=== PATIENT | male | born 1995 | race Caucasian/White ===

== ENCOUNTER 2023-05-24 14:40 | Inpatient (IN) | payer MEDICAID, OTHER ==
[~2023-05-24] VITALS: Ht 188 cm; Wt 105.0 kg
[2023-05-24] MEDS ORDERED: SODIUM CHLORIDE 0.9% 1,000 ML IVB ONE (15:00)
[2023-05-24] MEDS ORDERED: PANTOPRAZOLE 40 MG/10 ML VIAL INJ IV ONE (15:00)
[2023-05-24] MEDS ORDERED: HYDROmorphone HCL 2 MG/ML VL/or syr IV ONE (15:00)
[2023-05-24] MEDS ORDERED: PROCHLORPERAZINE EDISYLATE 5 MG/ML 2ML VIAL IV ONE (15:00)
[2023-05-24 16:06] LABS: Basophils # (auto) 0.1 10 ^3/uL (0-0.2); Basophils % (auto) 0.8 % (0.0-2.0); Eosinophils % (auto) 0.4 % (0.0-7.0); Nucleated Red Blood Cells % 0.2 %
[2023-05-24 16:08] LABS: Eosinophils # (auto) 0 10 ^3/uL (0-0.8); Hematocrit 43.8 % (41.0-53.0); Lymphocytes # (auto) 1.8 10 ^3/uL (0.4-5.4); Lymphocytes % (auto) 15.6 % (10.0-50.0); Mean Corpuscular Hemoglobin 33.4 pg (28.0-32.0); Mean Corpuscular Volume 86.2 fL (80.0-100.0); Monocytes # (auto) 0.8 10 ^3/uL (0-1.3); Monocytes % (auto) 6.7 % (0.0-12.0); Neutrophils # (auto) 9.1 10 ^3/uL (1.6-8.6); Neutrophils % (auto) 76.5 % (37.0-80.0); Red Blood Cells 5.08 10^6/uL (4.5-5.90); White Blood Cell 11.8 10^3/uL (4.4-10.8)
[2023-05-24 16:11] LABS: Mean Corpuscular Hgb Conc. 38.8 g/dL (32.0-36.0)
[2023-05-24 16:17] LABS: Calcium 9.7 mg/dL (8.7-10.4); Chloride 95 mmol/L (98-107); Sodium 129 mmol/L (136-145)
[2023-05-24 16:47] LABS: Albumin 4.9 g/dL (3.2-4.8); Alkaline Phosphatase 82 U/L (46-116); Anion Gap 17 (5-15); BUN/Creatinine Ratio 12.4 (10.0-20.0); Bilirubin, Total 0.4 mg/dL (0.2-1.0); Blood Urea Nitrogen 13 mg/dL (9-23); Carbon Dioxide 17 mmol/L (20-30); Lipase 567 U/L (12-53); Potassium 4.4 mmol/L (3.5-5.1); Total Protein 6.5 g/dL (5.7-8.2)
[2023-05-24 17:12] LABS: Glucose 429 mg/dL (74-106)
[2023-05-24 17:52] LABS: Alanine Aminotransferase 92 U/L (7-40); Aspartate Aminotransferase 57 U/L (13-40)
[2023-05-24] MEDS ORDERED: SODIUM CHLORIDE 0.9% 2,000 ML IV ONE (18:30)
[2023-05-24] MEDS ORDERED: DEXTROSE (50%) 50ML SYRG IV PRN (18:30)
[2023-05-24] MEDS ORDERED: DOCUSATE SOD 100 MG CAP PO PRN (18:30)
[2023-05-24] MEDS: chlordiazePOXIDE HCL 25 MG CAP PO SCH (18:30)
[2023-05-24] MEDS ORDERED: hydrALAZINE HCL 20 MG/ML VL IV PRN (18:45)
[2023-05-24] MEDS ORDERED: InsuLIN REG 1unit/0.01ml Soln (100units/ml) IV ONE (18:45)
[2023-05-24 19:03] LABS: Blood Alcohol < 3.0 mg/dL (<10)
[2023-05-24 19:12] LABS: Triglycerides 1871 mg/dL (< 150)
[2023-05-24] MEDS: ACCU-CHEK COMFORT CURVE STRIP VI SCH (20:00)
[2023-05-24] MEDS: InsuLIN REG 1unit/0.01ml Soln (100units/ml) SC SCH (21:00)
[2023-05-24 21:40] VITALS: PULSE 118; RESP 18; O2SAT 99
[2023-05-25] MEDS: PIPERACILLIN-TAZOB 3.375GM 100 ML IV SCH ×5 (00:12→21:18)
[2023-05-25] MEDS: HYDROmorphone HCL 2 MG/ML VL/or syr IV PRN ×2 (00:33→20:50)
[2023-05-25] MEDS: chlordiazePOXIDE HCL 25 MG CAP PO SCH ×4 (02:30→22:51)
[2023-05-25] MEDS: ACCU-CHEK COMFORT CURVE STRIP VI SCH ×13 (04:00→22:53)
[2023-05-25] MEDS: InsuLIN REG 1unit/0.01ml Soln (100units/ml) SC SCH ×3 (04:00→08:02)
[2023-05-25] MEDS ORDERED: LACTATED RINGER'S 1,000 ML IV ONE ×2 (05:30)
[2023-05-25] MEDS: SODIUM CHLORIDE 0.9% 1,000 ML IV SCH ×7 (05:33→22:52)
[2023-05-25 06:00] VITALS: PULSE 124; RESP 20; O2SAT 94
[2023-05-25 06:49] LABS: Basophils # (auto) 0 10 ^3/uL (0-0.2); Basophils % (auto) 0.4 % (0.0-2.0); Eosinophils # (auto) 0 10 ^3/uL (0-0.8); Hematocrit 50.7 % (41.0-53.0); Hemoglobin 17.1 g/dL (13.5-17.5); Lymphocytes # (auto) 0.8 10 ^3/uL (0.4-5.4); Lymphocytes % (auto) 8.3 % (10.0-50.0); Mean Corpuscular Hemoglobin 30.3 pg (28.0-32.0); Mean Corpuscular Hgb Conc. 33.6 g/dL (32.0-36.0); Mean Corpuscular Volume 90.2 fL (80.0-100.0); Monocytes # (auto) 0.8 10 ^3/uL (0-1.3); Monocytes % (auto) 8.1 % (0.0-12.0); Neutrophils # (auto) 8.2 10 ^3/uL (1.6-8.6); Neutrophils % (auto) 83.2 % (37.0-80.0); Nucleated Red Blood Cells % 0.3 %; Red Blood Cells 5.63 10^6/uL (4.5-5.90); Red Cell Distribution Width 14.6 % (11.8-14.3); White Blood Cell 9.8 10^3/uL (4.4-10.8)
[2023-05-25 07:13] LABS: Urine Epithelial Cast None Seen /hpf (<5)
[2023-05-25 07:43] VITALS: PULSE 118; RESP 24; O2SAT 92
[2023-05-25 07:47] LABS: Urine Bacteria NONE SEEN /hpf (None Seen); Urine Blood Negative /uL (Negative); Urine Clarity Clear (Clear); Urine Color Yellow (Yellow); Urine Protein, UAD 1+ (Negative); Urine Specific Gravity 1.038 (1.001-1.035); Urine Urobilinogen Normal (Negative); Urine WBC 1 /hpf (0 - 3); Urine pH 5.5 (5.0-8.0)
[2023-05-25 08:43] LABS: Bilirubin, Total 1.3 mg/dL (0.2-1.0)
[2023-05-25] MEDS ORDERED: DEXTROSE (50%) 50ML SYRG IV PRN (08:45)
[2023-05-25] MEDS ORDERED: INSULIN LANTUS (GLARGINE) 1 /0.01ml (100units/ml) SC ONE (08:45)
[2023-05-25] MEDS ORDERED: ACCU-CHEK COMFORT CURVE STRIP VI SCH ×2 (09:00→09:30)
[2023-05-25 09:25] LABS: Base Excess -3.2 mmol/L (-2.0-2.0)
[2023-05-25 09:34] LABS: Chloride 101 mmol/L (98-107); Sodium 127 mmol/L (136-145)
[2023-05-25] MEDS: INSULIN DRIP 100 UNIT/100ML 100 ML IV SCH (09:39)
[2023-05-25] MEDS: PANTOPRAZOLE 40 MG/10 ML VIAL INJ IV SCH (10:13)
[2023-05-25 11:22] LABS: Alanine Aminotransferase 62 U/L (7-40); Alkaline Phosphatase 60 U/L (46-116); Anion Gap 11 (5-15); Aspartate Aminotransferase 55 U/L (13-40); BUN/Creatinine Ratio 9.2 (10.0-20.0); Blood Urea Nitrogen 16 mg/dL (9-23); Carbon Dioxide 15 mmol/L (20-30); Potassium 5.4 mmol/L (3.5-5.1)
[2023-05-25 11:23] LABS: Albumin 4.1 g/dL (3.2-4.8); Lipase 385 U/L (12-53); Magnesium 1.5 mg/dL (1.6-2.6)
[2023-05-25 11:24] LABS: Glucose 553 mg/dL (74-106)
[2023-05-25] MEDS ORDERED: SODIUM CHLORIDE 0.9% 1,000 ML IV SCH ×2 (12:45→14:45)
[2023-05-25] MEDS: INSULIN LANTUS (GLARGINE) 1 /0.01ml (100units/ml) SC SCH (17:37)
[2023-05-25 19:30] VITALS: PULSE 124; RESP 18; O2SAT 95
[2023-05-25] MEDS: ONDANSETRON HCL 4 MG/2 ML VIAL IV PRN (20:48)
[2023-05-25] MEDS: FAMOTIDINE (10MG/ML) 2ML VL IV SCH (20:48)
[2023-05-26] MEDS: ACCU-CHEK COMFORT CURVE STRIP VI SCH ×11 (00:12→20:09)
[2023-05-26] MEDS: PIPERACILLIN-TAZOB 3.375GM 100 ML IV SCH (05:39)
[2023-05-26] MEDS: SODIUM CHLORIDE 0.9% 1,000 ML IV SCH ×7 (05:48→19:40)
[2023-05-26] MEDS: ONDANSETRON HCL 4 MG/2 ML VIAL IV PRN ×2 (06:01→18:12)
[2023-05-26] MEDS: HYDROmorphone HCL 2 MG/ML VL/or syr IV PRN ×2 (06:02→18:13)
[2023-05-26 06:44] LABS: Basophils # (auto) 0 10 ^3/uL (0-0.2); Basophils % (auto) 0.4 % (0.0-2.0); Eosinophils # (auto) 0 10 ^3/uL (0-0.8); Hematocrit 42.1 % (41.0-53.0); Hemoglobin 14.1 g/dL (13.5-17.5); Lymphocytes # (auto) 0.9 10 ^3/uL (0.4-5.4); Lymphocytes % (auto) 9.1 % (10.0-50.0); Mean Corpuscular Hemoglobin 29.6 pg (28.0-32.0); Mean Corpuscular Hgb Conc. 33.6 g/dL (32.0-36.0); Monocytes # (auto) 0.7 10 ^3/uL (0-1.3); Monocytes % (auto) 7.7 % (0.0-12.0); Neutrophils # (auto) 7.9 10 ^3/uL (1.6-8.6); Neutrophils % (auto) 82.8 % (37.0-80.0); Nucleated Red Blood Cells % 0.2 %; Red Blood Cells 4.78 10^6/uL (4.5-5.90); Red Cell Distribution Width 14.6 % (11.8-14.3); White Blood Cell 9.5 10^3/uL (4.4-10.8)
[2023-05-26 07:54] VITALS: PULSE 105; RESP 23; O2SAT 95
[2023-05-26 08:08] LABS: Alanine Aminotransferase 44 U/L (7-40); Alkaline Phosphatase 47 U/L (46-116); Amylase < 20 U/L (30-118); Anion Gap 8 (5-15); BUN/Creatinine Ratio 18.3 (10.0-20.0); Blood Urea Nitrogen 17 mg/dL (9-23); Calcium 7.7 mg/dL (8.5-10.1); Carbon Dioxide 23 mmol/L (20-30); Chloride 105 mmol/L (98-107); Potassium 3.7 mmol/L (3.5-5.1)
[2023-05-26 08:09] LABS: Albumin 3.7 g/dL (3.2-4.8); Aspartate Aminotransferase 29 U/L (13-40); Bilirubin, Total 1.3 mg/dL (0.2-1.0); Total Protein 6.1 g/dL (5.7-8.2)
[2023-05-26] MEDS: INSULIN DRIP 100 UNIT/100ML 100 ML IV SCH (08:49)
[2023-05-26 08:57] LABS: Glucose 229 mg/dL (74-106); Sodium 136 mmol/L (136-145)
[2023-05-26 08:58] LABS: Lipase 106 U/L (12-53)
[2023-05-26] MEDS ORDERED: INSULIN LANTUS (GLARGINE) 1 /0.01ml (100units/ml) SC SCH (10:00)
[2023-05-26] MEDS: chlordiazePOXIDE HCL 25 MG CAP PO SCH ×2 (10:11→22:00)
[2023-05-26] MEDS: PANTOPRAZOLE 40 MG/10 ML VIAL INJ IV SCH (10:12)
[2023-05-26] MEDS: INSULIN LANTUS (GLARGINE) 1 /0.01ml (100units/ml) SC SCH (10:15)
[2023-05-26] MEDS: FAMOTIDINE (10MG/ML) 2ML VL IV SCH ×2 (10:16→22:55)
[2023-05-26 11:12] LABS: Triglycerides 351 mg/dL (< 150)
[2023-05-26 11:13] LABS: LDL Cholesterol 26 mg/dL (< 100)
[2023-05-26 11:14] LABS: Cholesterol 119 mg/dL (< 200); HDL Cholesterol 10 mg/dL (40-59)
[2023-05-26] MEDS ORDERED: INSULIN LANTUS (GLARGINE) 1 /0.01ml (100units/ml) SC ONE (11:45)
[2023-05-26] MEDS ORDERED: chlordiazePOXIDE HCL 25 MG CAP PO SCH ×2 (11:45)
[2023-05-26] MEDS ORDERED: DEXTROSE (50%) 50ML SYRG IV PRN ×2 (11:45)
[2023-05-26] MEDS ORDERED: SODIUM CHLORIDE 0.9% 1,000 ML IV SCH (11:45)
[2023-05-26] MEDS ORDERED: ACCU-CHEK COMFORT CURVE STRIP VI SCH (11:45)
[2023-05-26] MEDS ORDERED: chlordiazePOXIDE HCL 25 MG CAP PO ONE (12:00)
[2023-05-26] MEDS: InsuLIN REG 1unit/0.01ml Soln (100units/ml) SC SCH ×3 (12:01→20:13)
[2023-05-27] VITALS (8 sets, daily range): BP systolic 105–126; BP diastolic 68–80; PULSE 92–109; RESP 16–18; TEMP 97.8–100.3; O2SAT 93–99
[2023-05-27] MEDS ORDERED: ESOM20CA PO (00:11)
[2023-05-27] MEDS: HYDROmorphone HCL 2 MG/ML VL/or syr IV PRN ×5 (00:13→21:03)
[2023-05-27] MEDS: InsuLIN REG 1unit/0.01ml Soln (100units/ml) SC SCH ×6 (00:14→20:56)
[2023-05-27] MEDS: ACCU-CHEK COMFORT CURVE STRIP VI SCH ×6 (00:15→20:21)
[2023-05-27] MEDS: SODIUM CHLORIDE 0.9% 1,000 ML IV SCH ×7 (00:17→18:14)
[2023-05-27 06:11] LABS: Alanine Aminotransferase 32 U/L (7-40); Albumin 3.7 g/dL (3.2-4.8); Alkaline Phosphatase 46 U/L (46-116); Anion Gap 6 (5-15); Aspartate Aminotransferase 17 U/L (13-40); Blood Urea Nitrogen 13 mg/dL (9-23); Calcium 8.1 mg/dL (8.7-10.4); Carbon Dioxide 27 mmol/L (20-30); Chloride 102 mmol/L (98-107); Glucose 151 mg/dL (74-106); Lipase 83 U/L (12-53); Potassium 3.6 mmol/L (3.5-5.1); Sodium 135 mmol/L (136-145)
[2023-05-27 06:12] LABS: Bilirubin, Total 0.6 mg/dL (0.2-1.0); Total Protein 6.1 g/dL (5.7-8.2)
[2023-05-27 06:30] LABS: BUN/Creatinine Ratio 17.3 (10.0-20.0)
[2023-05-27] MEDS ORDERED: chlordiazePOXIDE HCL 25 MG CAP PO SCH (07:00)
[2023-05-27] MEDS: FAMOTIDINE (10MG/ML) 2ML VL IV SCH ×2 (09:20→21:48)
[2023-05-27] MEDS: PANTOPRAZOLE 40 MG/10 ML VIAL INJ IV SCH (09:21)
[2023-05-27] MEDS: INSULIN LANTUS (GLARGINE) 1 /0.01ml (100units/ml) SC SCH (10:32)
[2023-05-28] VITALS (9 sets, daily range): BP systolic 114–150; BP diastolic 74–88; PULSE 61–112; RESP 17–21; TEMP 97.7–98.8; O2SAT 90–100
[2023-05-28] MEDS: ACCU-CHEK COMFORT CURVE STRIP VI SCH ×6 (00:04→20:25)
[2023-05-28] MEDS: InsuLIN REG 1unit/0.01ml Soln (100units/ml) SC SCH ×6 (00:06→20:28)
[2023-05-28] MEDS: HYDROmorphone HCL 2 MG/ML VL/or syr IV PRN ×7 (00:15→23:20)
[2023-05-28] MEDS: SODIUM CHLORIDE 0.9% 1,000 ML IV SCH ×2 (04:58→12:14)
[2023-05-28] MEDS ORDERED: chlordiazePOXIDE HCL 25 MG CAP PO SCH (07:00)
[2023-05-28] MEDS: PANTOPRAZOLE 40 MG/10 ML VIAL INJ IV SCH (09:49)
[2023-05-28] MEDS: FAMOTIDINE (10MG/ML) 2ML VL IV SCH ×2 (09:49→22:33)
[2023-05-28] MEDS: INSULIN LANTUS (GLARGINE) 1 /0.01ml (100units/ml) SC SCH (10:43)
[2023-05-28] MEDS ORDERED: GADOTERATE MEG 10 MMOL/20ml INJ (0.5MMOL/ml) IV ONE (13:16)
[2023-05-28] MEDS: LACTATED RINGER'S 1,000 ML IV SCH ×2 (13:20→23:27)
[2023-05-29] MEDS: ACCU-CHEK COMFORT CURVE STRIP VI SCH ×6 (00:25→20:18)
[2023-05-29] MEDS: InsuLIN REG 1unit/0.01ml Soln (100units/ml) SC SCH ×6 (00:28→20:18)
[2023-05-29] MEDS: HYDROmorphone HCL 2 MG/ML VL/or syr IV PRN ×6 (03:16→20:58)
[2023-05-29 05:00] VITALS: BP 164/88; PULSE 99; RESP 20; TEMP 98.4; O2SAT 96
[2023-05-29 06:41] LABS: Basophils # (auto) 0 10 ^3/uL (0-0.2); Basophils % (auto) 0.2 % (0.0-2.0); Eosinophils # (auto) 0 10 ^3/uL (0-0.8); Eosinophils % (auto) 0.4 % (0.0-7.0); Hematocrit 38.1 % (41.0-53.0); Hemoglobin 12.6 g/dL (13.5-17.5); Lymphocytes # (auto) 1.2 10 ^3/uL (0.4-5.4); Lymphocytes % (auto) 12.5 % (10.0-50.0); Mean Corpuscular Hemoglobin 29.9 pg (28.0-32.0); Mean Corpuscular Hgb Conc. 33.2 g/dL (32.0-36.0); Mean Corpuscular Volume 90.1 fL (80.0-100.0); Monocytes # (auto) 1.2 10 ^3/uL (0-1.3); Monocytes % (auto) 12.5 % (0.0-12.0); Neutrophils % (auto) 74.4 % (37.0-80.0); Nucleated Red Blood Cells % 0.1 %; Red Blood Cells 4.22 10^6/uL (4.5-5.90); Red Cell Distribution Width 14.1 % (11.8-14.3); White Blood Cell 9.4 10^3/uL (4.4-10.8)
[2023-05-29 06:42] LABS: Chloride 103 mmol/L (98-107); Potassium 3.3 mmol/L (3.5-5.1); Sodium 138 mmol/L (136-145)
[2023-05-29 06:43] LABS: Anion Gap 7 (5-15); Carbon Dioxide 28 mmol/L (20-30)
[2023-05-29 06:44] LABS: Calcium 8.9 mg/dL (8.7-10.4)
[2023-05-29 06:48] LABS: Glucose 149 mg/dL (74-106)
[2023-05-29 06:49] LABS: BUN/Creatinine Ratio 6.3 (10.0-20.0); Blood Urea Nitrogen < 5 mg/dL (9-23)
[2023-05-29 08:00] VITALS: PULSE 94
[2023-05-29 08:05] VITALS: BP 136/81; PULSE 105; RESP 18; TEMP 97.8; O2SAT 95
[2023-05-29] MEDS ORDERED: POTASSIUM CHLORIDE 40 MEQ, LIDOCAINE 1% (LOCAL ANESTH.) 4 ML in SODIUM CHL 0.9% 250 ML IV ONE (08:30)
[2023-05-29] MEDS: MAGNESIUM SULFATE 1GM/100ML 100 ML IV SCH ×3 (08:31→11:08)
[2023-05-29] MEDS ORDERED: SODIUM CHLORIDE LOCK 0 ML ONE (08:48)
[2023-05-29] MEDS ORDERED: MIDAZOLAM HCL 5 MG/ML-1ML VIAL ONE (08:48)
[2023-05-29] MEDS ORDERED: fentaNYL CITRATE 100 MCG/2 ML VL ONE (08:48)
[2023-05-29] MEDS ORDERED: diphenhdrAMINE HCL 50 MG/1 ML VL ONE (08:48)
[2023-05-29] MEDS ORDERED: LIDOCAINE VISCOUS 2% 15ML UD ONE (08:48)
[2023-05-29] MEDS: LACTATED RINGER'S 1,000 ML IV SCH ×2 (09:00→18:40)
[2023-05-29] MEDS: PANTOPRAZOLE 40 MG/10 ML VIAL INJ IV SCH (09:29)
[2023-05-29] MEDS: FAMOTIDINE (10MG/ML) 2ML VL IV SCH ×2 (09:29→21:04)
[2023-05-29] MEDS: INSULIN LANTUS (GLARGINE) 1 /0.01ml (100units/ml) SC SCH (09:32)
[2023-05-29 09:53] LABS: INR 1.14 (0.9-1.15); Partial Thromboplastin Time 29.1 SEC (24.5-34.5); Prothrombin Time 11.9 sec (9.3-11.8)
[2023-05-29 10:41] VITALS: BP 136/81; PULSE 101; RESP 18; TEMP 97.8; O2SAT 95
[2023-05-29] MEDS ORDERED: traMADol HCL 50 MG TAB PO PRN (16:00)
[2023-05-29 17:25] VITALS: BP 153/87; PULSE 98; RESP 19; TEMP 98; O2SAT 94
[2023-05-29 20:00] VITALS: BP 123/85; PULSE 101; PULSE 114; RESP 20; TEMP 99.1; O2SAT 96; O2SAT 99
[2023-05-30] MEDS: HYDROmorphone HCL 2 MG/ML VL/or syr IV PRN ×8 (00:05→22:46)
[2023-05-30] MEDS: ACCU-CHEK COMFORT CURVE STRIP VI SCH ×7 (00:06→23:45)
[2023-05-30] MEDS: InsuLIN REG 1unit/0.01ml Soln (100units/ml) SC SCH ×7 (00:06→23:56)
[2023-05-30] MEDS: traMADol HCL 50 MG TAB PO PRN (01:10)
[2023-05-30] MEDS: LACTATED RINGER'S 1,000 ML IV SCH ×3 (05:00→23:45)
[2023-05-30 06:03] LABS: Basophils # (auto) 0 10 ^3/uL (0-0.2); Basophils % (auto) 0.6 % (0.0-2.0); Eosinophils # (auto) 0.1 10 ^3/uL (0-0.8); Eosinophils % (auto) 0.7 % (0.0-7.0); Hematocrit 37.7 % (41.0-53.0); Hemoglobin 12.6 g/dL (13.5-17.5); Lymphocytes # (auto) 1.2 10 ^3/uL (0.4-5.4); Lymphocytes % (auto) 15.2 % (10.0-50.0); Mean Corpuscular Hemoglobin 29.7 pg (28.0-32.0); Mean Corpuscular Hgb Conc. 33.3 g/dL (32.0-36.0); Mean Corpuscular Volume 88.9 fL (80.0-100.0); Monocytes % (auto) 13.1 % (0.0-12.0); Neutrophils # (auto) 5.4 10 ^3/uL (1.6-8.6); Neutrophils % (auto) 70.4 % (37.0-80.0); Red Blood Cells 4.24 10^6/uL (4.5-5.90); White Blood Cell 7.7 10^3/uL (4.4-10.8)
[2023-05-30 06:46] LABS: Alanine Aminotransferase 21 U/L (7-40); Alkaline Phosphatase 68 U/L (46-116); Anion Gap 8 (5-15); Aspartate Aminotransferase 11 U/L (13-40); BUN/Creatinine Ratio 6.8 (10.0-20.0); Bilirubin, Total 0.6 mg/dL (0.2-1.0); Blood Urea Nitrogen < 5 mg/dL (9-23); Calcium 9.2 mg/dL (8.7-10.4); Carbon Dioxide 28 mmol/L (20-30); Chloride 102 mmol/L (98-107); Glucose 147 mg/dL (74-106); Magnesium 1.8 mg/dL (1.6-2.6); Potassium 3.2 mmol/L (3.5-5.1); Sodium 138 mmol/L (136-145); Total Protein 6.6 g/dL (5.7-8.2)
[2023-05-30 07:51] VITALS: BP 144/80; PULSE 86; RESP 18; TEMP 98.1; O2SAT 96
[2023-05-30 08:00] VITALS: BP 144/80; PULSE 83; PULSE 86; RESP 18; TEMP 98.1; O2SAT 96
[2023-05-30] MEDS: PANTOPRAZOLE 40 MG/10 ML VIAL INJ IV SCH (09:35)
[2023-05-30] MEDS: FAMOTIDINE (10MG/ML) 2ML VL IV SCH ×2 (09:35→21:52)
[2023-05-30] MEDS: INSULIN LANTUS (GLARGINE) 1 /0.01ml (100units/ml) SC SCH (09:38)
[2023-05-30] MEDS ORDERED: POTASSIUM CHLORIDE 40 MEQ, LIDOCAINE 1% (LOCAL ANESTH.) 4 ML in SODIUM CHL 0.9% 250 ML IV ONE (11:00)
[2023-05-30 11:58] VITALS: BP 119/86; PULSE 96; RESP 17; TEMP 98.7; O2SAT 92
[2023-05-30 16:43] VITALS: BP 142/80; PULSE 92; RESP 17; TEMP 98.7; O2SAT 95
[2023-05-30 20:00] VITALS: PULSE 105
[2023-05-30 22:00] VITALS: BP 155/95; PULSE 100; RESP 18; O2SAT 95
[2023-05-30] MEDS: LORazepam 2MG/ML-1ML VIAL IV PRN (23:45)
[2023-05-31] VITALS (7 sets, daily range): BP systolic 129–149; BP diastolic 82–95; PULSE 89–103; RESP 15–20; TEMP 98.4–100; O2SAT 95–97
[2023-05-31] MEDS: HYDROmorphone HCL 2 MG/ML VL/or syr IV PRN ×7 (01:47→22:19)
[2023-05-31] MEDS: InsuLIN REG 1unit/0.01ml Soln (100units/ml) SC SCH ×5 (03:56→20:00)
[2023-05-31] MEDS: ACCU-CHEK COMFORT CURVE STRIP VI SCH ×5 (04:06→20:00)
[2023-05-31 07:08] LABS: Chloride 102 mmol/L (98-107); Potassium 3.3 mmol/L (3.5-5.1); Sodium 138 mmol/L (136-145)
[2023-05-31 07:09] LABS: Anion Gap 8 (5-15); Calcium 9.5 mg/dL (8.7-10.4); Carbon Dioxide 28 mmol/L (20-30)
[2023-05-31 07:14] LABS: Glucose 126 mg/dL (74-106)
[2023-05-31 07:15] LABS: Magnesium 1.8 mg/dL (1.6-2.6)
[2023-05-31 07:25] LABS: BUN/Creatinine Ratio 6.8 (10.0-20.0); Blood Urea Nitrogen < 5 mg/dL (9-23)
[2023-05-31] MEDS: FAMOTIDINE (10MG/ML) 2ML VL IV SCH ×2 (09:32→22:17)
[2023-05-31] MEDS: PANTOPRAZOLE 40 MG/10 ML VIAL INJ IV SCH (09:32)
[2023-05-31] MEDS: INSULIN LANTUS (GLARGINE) 1 /0.01ml (100units/ml) SC SCH (09:37)
[2023-05-31] MEDS ORDERED: POTASSIUM CHL 20 Meq TABLET PO ONE (10:45)
[2023-05-31] MEDS: LACTATED RINGER'S 1,000 ML IV SCH ×2 (12:00→22:18)
[2023-05-31] MEDS ORDERED: ENOXAPARIN SOD 40 MG/0.4 ML SYRINGE SC ONE (13:00)
[2023-06-01] VITALS (8 sets, daily range): BP systolic 119–138; BP diastolic 67–84; PULSE 78–96; RESP 17–18; TEMP 97.5–98.8; O2SAT 94–100
[2023-06-01] MEDS: ACCU-CHEK COMFORT CURVE STRIP VI SCH ×6 (00:20→23:03)
[2023-06-01] MEDS: HYDROmorphone HCL 2 MG/ML VL/or syr IV PRN ×6 (01:55→19:37)
[2023-06-01] MEDS: InsuLIN REG 1unit/0.01ml Soln (100units/ml) SC SCH ×6 (04:00→23:03)
[2023-06-01 06:37] LABS: Anion Gap 7 (5-15); Carbon Dioxide 27 mmol/L (20-30); Chloride 103 mmol/L (98-107); Potassium 3.5 mmol/L (3.5-5.1); Sodium 137 mmol/L (136-145)
[2023-06-01 06:38] LABS: Calcium 9.4 mg/dL (8.7-10.4)
[2023-06-01 06:43] LABS: Glucose 128 mg/dL (74-106)
[2023-06-01 06:46] LABS: BUN/Creatinine Ratio 6.2 (10.0-20.0); Blood Urea Nitrogen < 5 mg/dL (9-23)
[2023-06-01 06:49] LABS: Magnesium 1.8 mg/dL (1.6-2.6)
[2023-06-01] MEDS: FAMOTIDINE (10MG/ML) 2ML VL IV SCH ×2 (08:07→22:36)
[2023-06-01] MEDS: PANTOPRAZOLE 40 MG/10 ML VIAL INJ IV SCH (08:09)
[2023-06-01] MEDS: ENOXAPARIN SOD 40 MG/0.4 ML SYRINGE SC SCH (09:42)
[2023-06-01] MEDS: LACTATED RINGER'S 1,000 ML IV SCH ×2 (11:27→17:00)
[2023-06-01] MEDS: INSULIN LANTUS (GLARGINE) 1 /0.01ml (100units/ml) SC SCH (11:51)
[2023-06-01] MEDS: ZOLPIDEM TARTRATE 5 MG TAB PO PRN (22:42)
[2023-06-02] VITALS (7 sets, daily range): BP systolic 98–122; BP diastolic 58–76; PULSE 74–96; RESP 18–20; TEMP 97.4–98.6; O2SAT 96–99
[2023-06-02] MEDS: HYDROmorphone HCL 2 MG/ML VL/or syr IV PRN ×6 (01:28→23:19)
[2023-06-02] MEDS: LACTATED RINGER'S 1,000 ML IV SCH ×3 (02:29→23:28)
[2023-06-02] MEDS: ACCU-CHEK COMFORT CURVE STRIP VI SCH ×4 (06:32→23:27)
[2023-06-02] MEDS: InsuLIN REG 1unit/0.01ml Soln (100units/ml) SC SCH ×4 (06:40→23:27)
[2023-06-02] MEDS: PANTOPRAZOLE 40 MG/10 ML VIAL INJ IV SCH (10:15)
[2023-06-02] MEDS: FAMOTIDINE (10MG/ML) 2ML VL IV SCH ×2 (10:15→21:41)
[2023-06-02] MEDS: ENOXAPARIN SOD 40 MG/0.4 ML SYRINGE SC SCH (10:29)
[2023-06-02] MEDS: INSULIN LANTUS (GLARGINE) 1 /0.01ml (100units/ml) SC SCH (10:47)
[2023-06-02] MEDS: ZOLPIDEM TARTRATE 5 MG TAB PO PRN (21:42)
[2023-06-03] VITALS (8 sets, daily range): BP systolic 115–133; BP diastolic 67–77; PULSE 71–79; RESP 17–20; TEMP 97.4–98.5; O2SAT 95–100
[2023-06-03] MEDS: HYDROmorphone HCL 2 MG/ML VL/or syr IV PRN ×5 (03:58→22:17)
[2023-06-03] MEDS: ACCU-CHEK COMFORT CURVE STRIP VI SCH ×3 (05:26→17:36)
[2023-06-03] MEDS: InsuLIN REG 1unit/0.01ml Soln (100units/ml) SC SCH ×3 (05:26→17:36)
[2023-06-03 06:58] LABS: Alanine Aminotransferase 28 U/L (7-40); Albumin 4.2 g/dL (3.2-4.8); Alkaline Phosphatase 67 U/L (46-116); Anion Gap 4 (5-15); Aspartate Aminotransferase 35 U/L (13-40); Bilirubin, Total 0.4 mg/dL (0.2-1.0); Calcium 9.8 mg/dL (8.5-10.1); Carbon Dioxide 31 mmol/L (20-30); Chloride 105 mmol/L (98-107); Glucose 116 mg/dL (74-106); Potassium 3.8 mmol/L (3.5-5.1); Sodium 140 mmol/L (136-145); Total Protein 6.9 g/dL (5.7-8.2)
[2023-06-03 07:03] LABS: BUN/Creatinine Ratio 5.7 (10.0-20.0); Blood Urea Nitrogen < 5 mg/dL (9-23)
[2023-06-03] MEDS: PANTOPRAZOLE 40 MG/10 ML VIAL INJ IV SCH (08:43)
[2023-06-03] MEDS: FAMOTIDINE (10MG/ML) 2ML VL IV SCH ×2 (08:43→22:17)
[2023-06-03] MEDS: LACTATED RINGER'S 1,000 ML IV SCH ×2 (08:58→19:00)
[2023-06-03] MEDS: ENOXAPARIN SOD 40 MG/0.4 ML SYRINGE SC SCH (11:03)
[2023-06-03] MEDS: INSULIN LANTUS (GLARGINE) 1 /0.01ml (100units/ml) SC SCH (11:12)
[2023-06-03] MEDS ORDERED: GADOTERATE MEG 10 MMOL/20ml INJ (0.5MMOL/ml) IV ONE (12:07)
[2023-06-03] MEDS ORDERED: DEXTROSE 10% 1,000 ML IV ONE (16:15)
[2023-06-03 17:02] LABS: Chloride 102 mmol/L (98-107); Potassium 3.8 mmol/L (3.5-5.1); Sodium 137 mmol/L (136-145)
[2023-06-03 17:03] LABS: Anion Gap 4 (5-15); Carbon Dioxide 31 mmol/L (20-30)
[2023-06-03 17:04] LABS: Calcium 9.8 mg/dL (8.5-10.1)
[2023-06-03 17:08] LABS: Glucose 99 mg/dL (74-106)
[2023-06-03 17:11] LABS: Blood Urea Nitrogen < 5 mg/dL (9-23)
[2023-06-04] VITALS (7 sets, daily range): BP systolic 110–146; BP diastolic 63–87; PULSE 65–94; RESP 16–20; TEMP 97.5–98.9; O2SAT 94–98
[2023-06-04] MEDS: ACCU-CHEK COMFORT CURVE STRIP VI SCH ×4 (00:26→21:15)
[2023-06-04] MEDS: ZOLPIDEM TARTRATE 5 MG TAB PO PRN (00:32)
[2023-06-04] MEDS: HYDROmorphone HCL 2 MG/ML VL/or syr IV PRN ×4 (03:57→23:28)
[2023-06-04] MEDS: InsuLIN REG 1unit/0.01ml Soln (100units/ml) SC SCH ×4 (06:41→21:18)
[2023-06-04] MEDS: FAMOTIDINE (10MG/ML) 2ML VL IV SCH ×2 (10:35→21:14)
[2023-06-04] MEDS: ENOXAPARIN SOD 40 MG/0.4 ML SYRINGE SC SCH (10:35)
[2023-06-04] MEDS: PANTOPRAZOLE 40 MG/10 ML VIAL INJ IV SCH (10:35)
[2023-06-04] MEDS: LACTATED RINGER'S 1,000 ML IV SCH (10:36)
[2023-06-04] MEDS: INSULIN LANTUS (GLARGINE) 1 /0.01ml (100units/ml) SC SCH (10:38)
[2023-06-04] MEDS: LORazepam 2MG/ML-1ML VIAL IV PRN ×2 (12:39→21:14)
[2023-06-04] MEDS: traMADol HCL 50 MG TAB PO PRN (16:30)
[2023-06-05] VITALS (7 sets, daily range): BP systolic 103–132; BP diastolic 61–84; PULSE 62–88; RESP 17–20; TEMP 97.3–98.7; O2SAT 18–96
[2023-06-05] MEDS: HYDROmorphone HCL 2 MG/ML VL/or syr IV PRN ×4 (05:36→21:24)
[2023-06-05 05:42] LABS: Albumin 4.2 g/dL (3.2-4.8); Alkaline Phosphatase 66 U/L (46-116); Anion Gap 6 (5-15); Aspartate Aminotransferase 56 U/L (13-40); BUN/Creatinine Ratio 8.9 (10.0-20.0); Bilirubin, Total 0.4 mg/dL (0.2-1.0); Blood Urea Nitrogen 8 mg/dL (9-23); Calcium 9.5 mg/dL (8.7-10.4); Carbon Dioxide 30 mmol/L (20-30); Chloride 103 mmol/L (98-107); Glucose 109 mg/dL (74-106); Lipase 131 U/L (12-53); Potassium 3.8 mmol/L (3.5-5.1); Sodium 139 mmol/L (136-145); Total Protein 6.9 g/dL (5.7-8.2)
[2023-06-05] MEDS: ACCU-CHEK COMFORT CURVE STRIP VI SCH ×4 (06:00→21:24)
[2023-06-05] MEDS: InsuLIN REG 1unit/0.01ml Soln (100units/ml) SC SCH ×4 (06:00→21:57)
[2023-06-05 06:39] LABS: Alanine Aminotransferase 47 U/L (7-40)
[2023-06-05] MEDS: ENOXAPARIN SOD 40 MG/0.4 ML SYRINGE SC SCH (08:47)
[2023-06-05] MEDS: FAMOTIDINE (10MG/ML) 2ML VL IV SCH ×2 (08:47→21:24)
[2023-06-05] MEDS: PANTOPRAZOLE 40 MG/10 ML VIAL INJ IV SCH (08:47)
[2023-06-05] MEDS: INSULIN LANTUS (GLARGINE) 1 /0.01ml (100units/ml) SC SCH (10:17)
[2023-06-05] MEDS: LORazepam 2MG/ML-1ML VIAL IV PRN ×2 (14:14→23:31)
[2023-06-06] VITALS (7 sets, daily range): BP systolic 104–129; BP diastolic 56–75; PULSE 67–94; RESP 16–20; TEMP 97.7–98.6; O2SAT 90–100
[2023-06-06] MEDS: HYDROmorphone HCL 2 MG/ML VL/or syr IV PRN ×5 (02:37→20:55)
[2023-06-06 06:18] LABS: Basophils # (auto) 0 10 ^3/uL (0-0.2); Basophils % (auto) 0.6 % (0.0-2.0); Eosinophils # (auto) 0.1 10 ^3/uL (0-0.8); Eosinophils % (auto) 1.7 % (0.0-7.0); Lymphocytes # (auto) 1.5 10 ^3/uL (0.4-5.4); Lymphocytes % (auto) 33.2 % (10.0-50.0); Mean Corpuscular Hemoglobin 29.2 pg (28.0-32.0); Mean Corpuscular Hgb Conc. 33.2 g/dL (32.0-36.0); Mean Corpuscular Volume 87.8 fL (80.0-100.0); Monocytes # (auto) 0.4 10 ^3/uL (0-1.3); Monocytes % (auto) 8.9 % (0.0-12.0); Neutrophils # (auto) 2.5 10 ^3/uL (1.6-8.6); Neutrophils % (auto) 55.6 % (37.0-80.0); Nucleated Red Blood Cells % 0.1 %; Red Blood Cells 4.44 10^6/uL (4.5-5.90); Red Cell Distribution Width 13.3 % (11.8-14.3); White Blood Cell 4.5 10^3/uL (4.4-10.8)
[2023-06-06 06:34] LABS: Anion Gap 6 (5-15); Carbon Dioxide 30 mmol/L (20-30); Chloride 103 mmol/L (98-107); Sodium 139 mmol/L (136-145)
[2023-06-06 06:36] LABS: Calcium 9.7 mg/dL (8.7-10.4)
[2023-06-06] MEDS: ACCU-CHEK COMFORT CURVE STRIP VI SCH ×4 (06:39→22:20)
[2023-06-06] MEDS: InsuLIN REG 1unit/0.01ml Soln (100units/ml) SC SCH ×4 (06:39→22:00)
[2023-06-06 06:40] LABS: BUN/Creatinine Ratio 10.3 (10.0-20.0); Blood Urea Nitrogen 10 mg/dL (9-23); Glucose 103 mg/dL (74-106)
[2023-06-06] MEDS: INSULIN LANTUS (GLARGINE) 1 /0.01ml (100units/ml) SC SCH (10:00)
[2023-06-06] MEDS: FAMOTIDINE (10MG/ML) 2ML VL IV SCH ×2 (10:03→22:05)
[2023-06-06] MEDS: LORazepam 2MG/ML-1ML VIAL IV PRN ×2 (10:03→20:52)
[2023-06-06] MEDS: PANTOPRAZOLE 40 MG/10 ML VIAL INJ IV SCH (10:03)
[2023-06-06] MEDS: ENOXAPARIN SOD 40 MG/0.4 ML SYRINGE SC SCH (10:13)
[2023-06-06] MEDS: traMADol HCL 50 MG TAB PO PRN (14:30)
[2023-06-06] MEDS ORDERED: PANT40TA2 PO (16:54)
[2023-06-06] MEDS ORDERED: LANC-347 XX (16:54)
[2023-06-06] MEDS ORDERED: BLOO1KIT60 XX (16:54)
[2023-06-06] MEDS ORDERED: INSU1INJ27 SC (16:54)
[2023-06-06] MEDS ORDERED: TRAM50TA2 PO (17:33)
[2023-06-07] MEDS: HYDROmorphone HCL 2 MG/ML VL/or syr IV PRN ×3 (01:40→11:10)
[2023-06-07 05:00] VITALS: BP 108/71; PULSE 80; RESP 18; TEMP 97.8; O2SAT 96
[2023-06-07] MEDS: LORazepam 2MG/ML-1ML VIAL IV PRN ×2 (06:50→12:55)
[2023-06-07] MEDS: ACCU-CHEK COMFORT CURVE STRIP VI SCH ×2 (06:53→11:30)
[2023-06-07] MEDS: InsuLIN REG 1unit/0.01ml Soln (100units/ml) SC SCH ×2 (06:53→11:30)
[2023-06-07 09:00] VITALS: BP 111/55; PULSE 72; RESP 16; TEMP 98; O2SAT 95
[2023-06-07] MEDS: ENOXAPARIN SOD 40 MG/0.4 ML SYRINGE SC SCH (10:00)
[2023-06-07] MEDS: INSULIN LANTUS (GLARGINE) 1 /0.01ml (100units/ml) SC SCH (10:00)
[2023-06-07] MEDS: FAMOTIDINE (10MG/ML) 2ML VL IV SCH (10:51)
[2023-06-07] MEDS: PANTOPRAZOLE 40 MG/10 ML VIAL INJ IV SCH (10:51)
[2023-06-07 13:00] VITALS: BP 111/65; PULSE 72; RESP 16; TEMP 98; O2SAT 95
== END 2023-06-07 16:33 | disposition home or self-care (01) | DRG 282 ==
LOC: EDBD 14:40 → ER 14:40 → TELE 18:32 → TELE-CENTR 05-26 23:29
PROVIDERS: ADMIT Nurse Practitioner Family; ATTEND Internal Medicine
DX: K85.20 Alcohol induced acute pancreatitis without necrosis or infection (principal); E11.10 Type 2 diabetes mellitus with ketoacidosis without coma; E88.810 Metabolic syndrome; E87.1 Hypo-osmolality and hyponatremia; E66.01 Morbid (severe) obesity due to excess calories; E78.1 Pure hyperglyceridemia; J45.909 Unspecified asthma, uncomplicated; K21.9 Gastro-esophageal reflux disease without esophagitis; E86.0 Dehydration; F10.10 Alcohol abuse, uncomplicated; F17.200 Nicotine dependence, unspecified, uncomplicated; K70.10 Alcoholic hepatitis without ascites; K86.3 Pseudocyst of pancreas; K76.0 Fatty (change of) liver, not elsewhere classified; R16.2 Hepatomegaly with splenomegaly, not elsewhere classified; R91.1 Solitary pulmonary nodule; Z68.29 Body mass index [BMI] 29.0-29.9, adult; Z82.49 Family history of ischemic heart disease and other diseases of the circulatory system
CPT/HCPCS: 36415; 36600; 71045; 74176; 74183; 76700; 80048; 80053; 80061; 80320; 81001; 82010; 82150; 82805; 82962; 83036; 83615; 83690; 83735; 83930; 84478; 85025; 85610; 85730; 86141; 93005; 96374; 96375; C9113; G0378; J1815; J2001; J2250; J2405; J2543; J3490